=== PATIENT | female | born 1985 | race Two or more races ===

== ENCOUNTER 2016-10-15 12:16 | Emergency (ER) | payer BC ==
[~2016-10-15] VITALS: Ht 172.7 cm; Wt 59.0 kg
--- NOTE | 2016-10-15 12:40 | NUR ---
PT BIB SELF C/O PADILLA AND FARZAD CALF "FEELING HEAVY" S/P "VASOVAGAL SYNDROME" IN SHOWER. RESP EVEN UNLABORED. AMBULATORY WITH VERY WEAK, UNSTEADY GAIT. PT IS WALKING WITH STRAIGHT KNEES AND REPORTS HER LEGS FEEL LIKE "LEAD WEIGHTS". VSS. SKIN WARM NONDIAPHORETIC. IN ER BED 12.
[2016-10-15 12:59] LABS: BASOPHILS % (AUTO) 0.5 % (0.0-2.0); EOSINOPHILS # (AUTO) 0.1 /CMM (0.0-0.7); EOSINOPHILS % (AUTO) 0.9 % (0.0-6.0); HEMATOCRIT 42 % (33-45); HEMOGLOBIN 13.6 g/dL (11.5-14.8); LYMPHOCYTES # (AUTO) 1.3 /CMM (0.8-4.8); LYMPHOCYTES % (AUTO) 22.9 % (20.0-44.0); MEAN CORPUSCULAR HEMOGLOBIN 26 PG (26.0-33.0); MEAN CORPUSCULAR HGB CONC 32 g/dl (31.0-36.0); MEAN CORPUSCULAR VOLUME 81 fL (82-100); MONOCYTES # (AUTO) 0.4 /CMM (0.1-1.30); MONOCYTES % (AUTO) 6.8 % (2.0-12.0); NEUTROPHILS # (AUTO) 3.9 /CMM (1.8-8.9); NEUTROPHILS % (AUTO) 68.9 % (43.0-81.0); PLATELET COUNT (AUTO) 273 /CMM (150-450); RDW COEFFICIENT OF VARIATION 13.5 (11.5-15.0); RED BLOOD CELL COUNT(AUTO) 5.21 MIL/uL (4.0-5.2); WHITE BLOOD COUNT (AUTO) 5.7 K/uL (4.3-11.0)
[2016-10-15 13:08] LABS: CALCIUM, SERUM 9.6 mg/dL (8.5-10.1); CREATININE 0.8 mg/dL (0.6-1.3); POTASSIUM 4.2 mmol/L (3.5-5.1)
[2016-10-15 13:36] LABS: APPEARANCE,URINE Clear (CLEAR); BILIRUBIN,URINE Negative (NEGATIVE); BLOOD, URINE Moderate Ery/uL (NEGATIVE); COLOR,URINE Yellow (YELLOW); KETONES,URINE Negative (NEGATIVE); LEUKOCYTE ESTERASE ,URINE Negative (NEGATIVE); NITRITE, URINE Negative (NEGATIVE); PROTEIN,URINE Negative (NEGATIVE); UGLUCOSE Negative (NEGATIVE); UROBILINOGEN,URINE 0.2 EU/dL (0.2)
[2016-10-15 13:39] LABS: PREGNANCY TEST URINE QUAL NEGATIVE (NEGATIVE)
[2016-10-15 13:44] LABS: BACTERIA,URINE None seen /HPF (None Seen); MUCUS,URINE Few /LPF (None Seen); SQUAMOUS EPITHELIAL CELL,UR Moderate /HPF (None Seen)
--- NOTE | 2016-10-15 15:28 | NUR ---
TEXTED DR. YAN FOR MRI APPROVAL.
--- NOTE | 2016-10-15 15:37 | NUR ---
RESTING QUIETLY, NAD NOTED. ALL NEEDS ATTENDED TO. VSS.
--- NOTE | 2016-10-15 16:00 | NUR ---
RADIOLOGIST SAID TENSILE TESTER WILL BE IN BETWEEN [id number]
[2016-10-15] MEDS ORDERED: LORAZEPAM 1 MG TABLET ONE (16:57)
[2016-10-15] MEDS ORDERED: LORAZEPAM 1 MG TABLET PO ONE (17:00)
--- NOTE | 2016-10-15 17:14 | NUR ---
RESTING CALMLY WITH FAMILY AT BEDSIDE, NAD NOTED. AWAITING MRI.
--- NOTE | 2016-10-15 18:28 | NUR ---
PT RETURNED FROM MRI IN STABLE CONDITION
--- NOTE | 2016-10-15 20:20 | NUR ---
Patient discharged to home in stable condition. Written and verbal after care instructions given. Patient verbalizes understanding of instruction. ALL IMAGING AND RESULTS WITH PT. AMBULATED WITH SLOW, SOMEWHAT UNSTEADY GAIT BUT MUCH IMPROVED FROM INITIAL PRESENTATION.
[2016-10-15 20:21] VITALS: BP 131/83
== END 2016-10-15 20:21 | disposition home or self-care (01) ==
LOC: ER 12:25
DX: R53.1 Weakness (principal); R55 Syncope and collapse; Z85.41 Personal history of malignant neoplasm of cervix uteri
CPT/HCPCS: 36415; 70450; 72148; 80048; 81001; 82550; 84703; 85025; 85652; 86140; 93005; 99285; A4606; Z7610; 81000-TC

== ENCOUNTER 2017-02-23 09:48 | Emergency (ER) | payer BC ==
[~2017-02-23] VITALS: Ht 172.7 cm; Wt 56.7 kg
== END 2017-02-23 10:17 | disposition home or self-care (01) ==
LOC: ER 09:50
DX: M54.5 Low back pain (principal); M54.2 Cervicalgia; M25.562 Pain in left knee; V49.40XA Driver injured in collision with unspecified motor vehicles in traffic accident, initial encounter; Y93.89 Activity, other specified; Y92.413 State road as the place of occurrence of the external cause; Y99.8 Other external cause status
CPT/HCPCS: 99282; A4606